=== PATIENT | female | born 1950 | race Caucasian/White ===

== ENCOUNTER 2017-06-14 07:25 | Day surgery (SDC) ==
[2017-06-14] MEDS ORDERED: LIDOCAINE 1% 20 ML MDV ID ONE (08:05)
[2017-06-14] MEDS ORDERED: ALBUTEROL 0.083% NEB NEB STA (08:16)
[2017-06-14] MEDS ORDERED: DIPRIVAN 20 ML VIAL IVP ONE (09:40)
[2017-06-14] MEDS ORDERED: VERSED ONE (09:40)
[2017-06-14 11:18] VITALS: BP 112/77; TEMP 98.6
--- NOTE | 2017-06-15 14:06 | OP ---
INDICATIONS FOR PROCEDURE: 67 year old female presents for colonoscopy exams. She has a history of abnormalis polyp with the last colonoscopy three years ago. MEDICATIONS: SEE ANESTHESIA NOTES. PROCEDURE: COLONOSCOPY. SNARE POLYPECTOMY REPORT: The risks, benefits, alternatives and limitations were discussed in detail with the patient. Informed consent was obtained. After adequate sedation was achieved, a digital rectal exam revealed good tone, no masses. The colonoscope was introduced into the rectum and advanced under direct visual guidance to the cecum. The cecum was identified by the appendiceal orifice and IC valve. I then slowly withdrew the scope in circumferential manner and examined the mucosa quite carefully. I looked on the proximal distal sides of folds and flexures as best as possible. I was able to retroflex the scope in the right colon and the left colon to increase visualization. In the descending colon there was a sessile 6mm polyp that I removed by snare technique. On retroflex view of the anal canal a small non engorged internal hemorrhoids and no other abnormalities were noted. The prep good and withdraw time with 8 minutes and 38 seconds. The patient tolerated the procedure well with stable vital signs and pulse oximetry throughout. IMPRESSION: 1. Small polyp removed 2. Small non engorged internal hemorrhoid. RECOMMENDATIONS: 1. High fiber diet 2. Office visit as needed 3. Await pathology results and if everything is benign I recommend a repeat colonoscopy examination again for surveillance in 5 years or sooner if signs or symptoms indicate otherwise CC: Dr. Donna UMAÑA
== END 2017-06-14 11:00 | disposition home or self-care (01) ==
LOC: SURG 07:25
PROVIDERS: ATTEND Internal Medicine Gastroenterology
DX: Z09 Encounter for follow-up examination after completed treatment for conditions other than malignant neoplasm (principal); Z86.010 Personal history of colon polyps; D12.4 Benign neoplasm of descending colon; K64.8 Other hemorrhoids
CPT/HCPCS: 94640

== ENCOUNTER 2017-08-15 13:07 | Outpatient (CLI) | payer OTHER ==
--- NOTE | 2017-08-15 14:07 | DEXA ---
EXAM: Bone density HISTORY: Osteopenia with familial history of hip fracture and patient with history of hysterectomy COMPARISON: DEXA 04/03/2013 TECHNIQUE: Digital images of the hips were provided and calculation of bone density was obtained. FINDINGS: DEXA of the hips was performed and of good quality. Total bone marrow density of 0.896 grams per square centimeter. T score is - 0.9 and T-score of 0.2. IMPRESSION: Bone density of the hips demonstrate normal bone density by WHO criteria. 10-year probability of major osteoporotic fracture is 29.1% and hip fracture risk of 6.6% T score greater than -1 is normal T score -1 to -2.5 is osteopenia T score less than - 2.5 is osteoporosis
--- NOTE | 2017-08-17 09:03 | MAMMO ---
EXAM: Bilateral digital screening mammogram (2-D and 3-D) History: Screening Comparison: Bilateral mammogram 04/03/2013 Findings: MLO and CC views of bilateral breasts demonstrate predominately fatty replaced breast pare nchyma. CAD was reviewed by the radiologist. Tomosynthesis was performed. There are no dominant ma sses, no suspicious microcalcifications and no architectural distortions Impression: Benign stable mammogram. Recommend followup routine screening tomography in 1 year. BIRADS 2
== END 2017-08-15 13:08 | disposition home or self-care (01) ==
LOC: RAD 13:07
PROVIDERS: ATTEND Internal Medicine
DX: Z12.31 Encounter for screening mammogram for malignant neoplasm of breast (principal); Z78.0 Asymptomatic menopausal state; M85.80 Other specified disorders of bone density and structure, unspecified site
CPT/HCPCS: 77067

== ENCOUNTER 2018-08-24 08:14 | Outpatient (CLI) ==
--- NOTE | 2018-08-25 08:51 | MAMMO ---
EXAM: Bilateral digital screening mammogram (2-D and 3-D) History: Screening Comparison: Bilateral mammogram 08/15/2017 Findings: MLO and CC views of bilateral breasts demonstrate scattered fibroglandular breast parenchy ma. CAD was reviewed by the radiologist. Tomosynthesis was performed. Stable benign calcifications within the right breast. Stable small benign bilateral breast nodules. No developing masses, no guerrier spicious microcalcifications and no architectural distortions Impression: Benign stable mammogram. Recommend followup routine screening mammography in 1 year. BIRADS 2
== END 2018-08-24 08:15 | disposition home or self-care (01) ==
LOC: RAD 08:14
PROVIDERS: ATTEND Internal Medicine
DX: Z12.31 Encounter for screening mammogram for malignant neoplasm of breast (principal)